=== PATIENT | female | born 1995 | race African-American/Black ===

== ENCOUNTER 2021-03-01 17:03 | Emergency (ER) | payer OTHER ==
[~2021-03-01] VITALS: Ht 175.3 cm; Wt 54.4 kg
--- NOTE | ~2021-03-01 | EMS ---
[address] [address] EMS Patient Care Report Name: JING HEATON Room #: DEP Dashawn#: [id number] Admission: 03/01/21 Attend Phys: Discharge: 03/01/21 Date of : [birth year] Report #: [id number] THIS REPORT FOR: //name// Report Transmitted: 03/03/2021 13:58 EMS Care Summary [place], [place]/[facility] Incident [id number] @ 03/01/2021 16:24 Incident Location [address] [place] [address] Patient JING HEATON Female, 25 Years 1995 Patient Address [address] [place] [address] Patient History Other,Anemia, Patient Allergies Penicillin allergy, Chief Complaint tachycardia Disposition Transported No Lights/[place] Reason Sick Person Transported To [facility] Narrative pt was at a [employer] party and ate an edible. it is now approx an hr later and pt c/o feeling like her heart is racing and her body hurts all over. she went to an urgent care clinic and they called for ambulance transport. pt charisma darling at closest ER. pt found lying on clinic bed, a&o. she denies getting the covid vaccine.. pt to wheelchair and cot. tx as listed in flow chart. transport w/o change. [address] [address] EMS Patient Care Report Name: JING HEATON Room #: DEP Dashawn#: [id number] Admission: 03/01/21 Attend Phys: Discharge: 03/01/21 Date of : [birth year] Report #: [id number] Initial Vitals @16:47P: 109,R: 20,BP: 113/72,Pain: 8/10,GCS: 15,Temp: 98.6F,Glucose: 118,SpO2: 100,Revised Trauma: 12, Assessments @16:41MENTAL:No Abnormalities,SKIN:No Abnormalities,HEENT:Head/Face: No Abnormalities,LUNG SOUNDS:ABDOMEN:PELVIS//GI:EXTREMITIES:PULSE:Radial: 2+ Normal,NEURO:Other, Impression Fatigue Procedures @16:41ALS AssessmentResponse: Unchanged@16:503-Lead ECGResponse: Unchanged@16:45StretcherResponse: Unchanged Timeline 16:22,Call Received 16:22,Dispatch Notified 16:24,Dispatched 16:26,En Route 16:39,On Scene 16:41,At Patient 16:41,ALS Assessment,Response: Unchanged 16:45,Stretcher,Response: Unchanged 16:47,BP: 113/72 M,PULSE: 109,RR: 20 R,SPO2: 100 Ox,ETCO2: ,B,PAIN: 8,GCS: 15, 16:50,3-Lead ECG,Response: Unchanged 16:52,Depart Scene 16:59,At Destination 17:17,Call Closed Disclaimer v1.1 Copyright 2020 [employer] This EMS Care Summary contains data elements from the applicable legal record (which may be displayed differently). It is designed to provide pertinent information for the following purposes: continuity of care, clinical quality, and state data reporting. The complete legal record is available to ED staff and administrators of the receiving hospital in [employer]'s Patient Tracker. All data is provided "as is."
--- NOTE | ~2021-03-01 | EMS ---
[address] [address] EMS Patient Care Report Name: JING HEATON Room #: REG M.RLoi#: [id number] Admission: 03/01/21 Attend Phys: Discharge: Date of : [birth year] Report #: [id number] THIS REPORT FOR: //name// Report Transmitted: 03/01/2021 18:49 EMS Care Summary [place], [place]/[facility] Incident [id number] @ 03/01/2021 16:24 Incident Location [address] [place] [address] Patient JING HEATON Female, 25 Years 1995 Patient Address [address] [place] [address] Patient History Other,Anemia, Patient Allergies Penicillin allergy, Chief Complaint tachycardia Disposition Transported No Lights/[place] Dispatch Reason Sick Person Transported To [facility] Narrative pt was at a [employer] party and ate an edible. it is now approx an hr later and pt c/o feeling like her heart is racing and her body hurts all over. she went to an urgent care clinic and they called for ambulance transport. pt charisma darling at closest ER. pt found lying on clinic bed, a&o. she denies getting the covid vaccine.. pt to wheelchair and cot. tx as listed in flow chart. transport w/o change. [address] [address] EMS Patient Care Report Name: JING HEATON Room #: REG M.R.#: [id number] Admission: 03/01/21 Attend Phys: Discharge: Date of : [birth year] Report #: [id number] Initial Vitals @16:47P: 109,R: 20,BP: 113/72,Pain: 8/10,GCS: 15,Temp: 98.6F,Glucose: 118,SpO2: 100,Revised Trauma: 12, Assessments @16:41MENTAL:No Abnormalities,SKIN:No Abnormalities,HEENT:Head/Face: No Abnormalities,LUNG SOUNDS:ABDOMEN:PELVIS//GI:EXTREMITIES:PULSE:Radial: 2+ Normal,NEURO:Other, Impression Fatigue Procedures @16:41ALS AssessmentResponse: Unchanged@16:503-Lead ECGResponse: Unchanged@16:45StretcherResponse: Unchanged Timeline 16:22,Call Received 16:22,Dispatch Notified 16:24,Dispatched 16:26,En Route 16:39,On Scene 16:41,At Patient 16:41,ALS Assessment,Response: Unchanged 16:45,Stretcher,Response: Unchanged 16:47,BP: 113/72 M,PULSE: 109,RR: 20 R,SPO2: 100 Ox,ETCO2: ,B,PAIN: 8,GCS: 15, 16:50,3-Lead ECG,Response: Unchanged 16:52,Depart Scene 16:59,At Destination 17:17,Call Closed Disclaimer v1.1 Copyright 2020 [employer] This EMS Care Summary contains data elements from the applicable legal record (which may be displayed differently). It is designed to provide pertinent information for the following purposes: continuity of care, clinical quality, and state data reporting. The complete legal record is available to ED staff and administrators of the receiving hospital in [employer]'s Patient Tracker. All data is provided "as is."
[2021-03-01 17:44] LABS: ABSOLUTE NEUTROPHILS 3.6 thou/uL (1.4-8.2); BASOPHILS 0.5 % (0.0-2.0); EOSINOPHILS 0.3 % (0.0-3.0); HEMATOCRIT 32.5 % (37.0-47.0); HEMOGLOBIN 10.4 gm/dL (12.0-15.0); LYMPHOCYTES 27.5 % (24.0-44.0); MCH 23.2 pg (26.0-34.0); MCHC 32.1 g/dL (28.0-37.0); MCV 72.3 fL (80.0-100.0); MONOCYTES 10.5 % (1.0-8.0); PLATELET COUNT 246 thou/uL (150-400); POLYS 61.2 % (36.0-66.0); RBC 4.49 mil/uL (4.20-5.00); RDW 12.4 % (10.5-14.5); WBC 5.9 thou/uL (4.0-11.0)
[2021-03-01 17:49] LABS: ANION GAP 9 mmol/L (7-16); BUN 13 mg/dL (7-18); CALCIUM 9.4 mg/dL (8.5-10.1); CHLORIDE 102 mmol/L (98-107); CO2 24 mmol/L (21-32); CREATININE 1.1 mg/dL (0.6-1.0); GLUCOSE 123 mg/dL (74-106); SODIUM 135 mmol/L (136-145)
[2021-03-01 17:54] LABS: URINE BILIRUBIN NEGATIVE (Negative); URINE BLOOD NEGATIVE (Negative); URINE CLARITY CLEAR; URINE COLOR YELLOW; URINE GLUCOSE-RANDOM* NEGATIVE (Negative); URINE KETONES NEGATIVE (Negative); URINE LEUKOCYTES-REFLEX NEGATIVE (Negative); URINE NITRITE-REFLEX NEGATIVE (Negative); URINE PROTEIN (DIPSTICK) NEGATIVE (Negative); URINE SPECIFIC GRAVITY 1.025 (1.005-1.035); URINE UROBILINOGEN 0.2 E.U./dl (0.2-1.0)
[2021-03-01 18:00] LABS: ALBUMIN 3.5 g/dL (3.4-5.0); SGOT 18 U/L (15-37); SGPT 20 U/L (14-59); TOTAL BILIRUBIN 0.3 mg/dL (0.2-1.0); TOTAL PROTEIN 7.4 g/dL (6.4-8.2); TROPONIN-I <0.06 ng/mL (<0.06)
[2021-03-01 18:03] LABS: AMP/METHAMP Negative (Negative); BARBITURATES Negative (Negative); BENZODIAZEPINES Negative (Negative); COCAINE Negative (Negative); METHADONE Negative (Negative); OPIATES Negative (Negative); PCP Negative (Negative)
[2021-03-01] MEDS ORDERED: ZOFRAN ODT4 MG PO (20:27)
[2021-03-01 20:57] VITALS: BP 101/65
--- NOTE | 2021-03-02 10:33 | EKG ---
[address] [address] [facility] [place] [address] ELECTROCARDIOGRAM REPORT Name: JING HEATON [facility] [id number] Admission: 03/01/21 Attend Phys: Discharge: 03/01/21 Date of : [birth year] Report #: [id number] [facility] ED Test Date: 2021-03-01 Test Time: 17:15:05 Pat Name: JING HEATON Department: Room: Gender: F Dining Room Tables Set Up Attendant: JOSHUA : 1995 Requested By: Luly Bowie Order Number: [id number] MD: Morris Watson Measurements Intervals [place] Rate: 97 P: 52 DC: 151 QRS: 72 QRSD: 98 T: 53 QT: 350 QTc: 445 Interpretive Statements Sinus rhythm RSR' in V1 or V2, probably normal variant No previous ECG available for comparison Electronically Signed On 03-02-2021 10:33:05 CDT by Morris Watson [email or web address] <ELECTRONICALLY SIGNED> By: Morris Watson MD, [facility] 03/02/21 1033 1715 1715 Morris Watson MD, FACC /EPI
== END 2021-03-01 20:58 | disposition home or self-care (01) ==
LOC: ER 17:03
PROVIDERS: Physician Assistant
DX: F12.920 Cannabis use, unspecified with intoxication, uncomplicated (principal); Z88.0 Allergy status to penicillin; Z20.822 Contact with and (suspected) exposure to COVID-19